=== PATIENT | male | born 1985 | race Caucasian/White ===

== ENCOUNTER 2023-10-27 20:27 | Emergency (ER) | payer OTHER ==
[2023-10-27] MEDS ORDERED: Ondansetron ODT 4 MG TAB ONE (20:57)
== END 2023-10-27 22:47 | disposition home or self-care (01) ==
LOC: MADERS 20:27 → EDBD 20:27 → MADERS 22:47
DX: A08.4 Viral intestinal infection, unspecified (principal); F17.290 Nicotine dependence, other tobacco product, uncomplicated
CPT/HCPCS: 99283; Q0162